=== PATIENT | male | born 1980 | race Caucasian/White ===

== ENCOUNTER 2018-03-09 18:05 | Observation (INO) | payer BC ==
[2018-03-09] MEDS ORDERED: Sodium Chloride 0.9% 10 ML Syringe FLUSH PRN (19:18)
[2018-03-09] MEDS ORDERED: Sodium Chloride 0.9% 2.5 ML Syringe FLUSH PRN (19:18)
[2018-03-09] MEDS ORDERED: Sodium Chloride 0.9% 1,000 ML IV ONE (19:23)
--- NOTE | 2018-03-09 19:27 | EDM.PDOC ---
ED HPI GENERAL MEDICAL PROBLEM - General Chief Complaint: Upper Extremity Injury/Pain Stated Complaint: ALGERIC REATION Time Seen by Provider: 03/09/18 19:11 - History of Present Illness INITIAL COMMENTS - FREE TEXT/NARRATIVE: HISTORY AND PHYSICAL: History of present illness: Patient is a 37-year-old male history chronic back pain 3 months status post implantable stimulator for pain management of his lower back who presents with a concern of 4 areas of erythema involving his right left extremity abdomen and right leg the left extremity has a area of swelling and fullness to his left forearm with a ascending lymphangitis there is a similar area without any swelling or lymphangitic spread of his right arm there is a small lesion on his abdomen and an area of erythema without swelling on his right leg all of these are pruritic. He has had some nausea he denies fever chills chest pain cough or other concern Review of systems: As per history of present illness and below otherwise all systems reviewed and negative. Past medical history: As per history of present illness and as reviewed below otherwise noncontributory. Surgical history: As per history of present illness and as reviewed below otherwise noncontributory. Social history: No reported history of drug or alcohol abuse. Family history: As per history of present illness and as reviewed below otherwise noncontributory. Physical exam: HEENT: Atraumatic, normocephalic, pupils reactive, negative for conjunctival pallor or scleral icterus, mucous membranes moist, throat clear, neck supple, nontender, trachea midline. Lungs: Clear to auscultation, breath sounds equal bilaterally, chest nontender. Heart: S1S2, regular, negative for clicks, rubs, or JVD. Abdomen: Soft, nondistended, nontender. Negative for masses or hepatosplenomegaly. Negative for costovertebral tenderness. Pelvis: Stable nontender. Genitourinary: Deferred. Rectal: Deferred. Extremities: Patient has an area of swelling edema is approximately 5 x 4 cm to his left forearm with a ascending lymphangitis noted is right bicep region has an area of erythema with no significant swelling and no lymphangitic spread is a similar but smaller area of his right leg and a small macular area on his abdomen. Neuro: Awake, alert, oriented. Cranial nerves II through XII unremarkable. Cerebellum unremarkable. Motor and sensory unremarkable throughout. Exam nonfocal. Diagnostics: CBC CMP PT/INR blood culture 2 lactic acid UA chest x-ray CT with contrast left forearm Therapeutics: Saline 1 L bolus vancomycin 1 g IV Impression: #1 cellulitis with ascending lymphangitis left upper extremity Definitive disposition and diagnosis as appropriate pending reevaluation and review of above. Left Upper Arm Pain Score (Numeric/FACES): 7 - Related Data Allergies Allergy/AdvReac Type Severity Reaction Status Date / Time bee pollen Allergy Other Verified 03/09/18 18:31 Home Meds: Home Meds Phenytoin Sodium Extended [Dilantin] 400 mg PO BEDTIME 03/09/18 [History] Past Medical History Neurological History: Reports: Seizure - Infectious Disease History Infectious Disease History: Reports: None Social & Family History - Family History Family Medical History: Noncontributory - Tobacco Use Smoking Status *Q: Current Every Day Smoker Years of Tobacco use: 20 Packs/Tins Daily: 1 - Caffeine Use Caffeine Use: Reports: Coffee - Recreational Drug Use Recreational Drug Use: No Review of Systems - Review of Systems Review Of Systems: ROS reveals no pertinent complaints other than HPI. ED EXAM, GENERAL - Physical Exam Exam: See Below (See dictation) Course - Vital Signs Last Recorded V/S: Last Vital Signs Temp 36.8 C 03/09/18 18:32 Pulse 106 H 03/09/18 18:32 Resp 18 03/09/18 18:32 BP 170/83 H 03/09/18 18:32 Pulse Ox 97 03/09/18 18:32 - Orders/Labs/Meds Orders: Active Orders 24 hr Category Date Time Status Chest 1V Frontal [CR] Stat Exams 03/09/18 19:19 Taken Forearm w Cont Lt [CT] Stat Exams 03/09/18 19:18 Taken CULTURE BLOOD [BC] Stat Lab 03/09/18 19:29 Received CULTURE BLOOD [BC] Stat Lab 03/09/18 19:40 Received UA W/MICROSCOPIC [URIN] Stat Lab 03/09/18 19:17 Ordered Sodium Chloride 0.9% [Saline Flush] Med 03/09/18 19:18 Active 10 ml FLUSH ASDIRECTED PRN Sodium Chloride 0.9% [Saline Flush] Med 03/09/18 19:18 Active 2.5 ml FLUSH ASDIRECTED PRN Blood Culture x2 Reflex Set [OM.PC] Stat Oth 03/09/18 19:17 Ordered Saline Lock Insert [OM.PC] Stat Oth 03/09/18 19:16 Ordered Medication Orders Sodium Chloride (Saline Flush) 10 ml FLUSH ASDIRECTED PRN PRN Reason: Keep Vein Open Sodium Chloride (Saline Flush) 2.5 ml FLUSH ASDIRECTED PRN PRN Reason: Keep Vein Open Labs: Laboratory Tests 03/09/18 03/09/18 03/09/18 Range/Units 19:29 19:29 19:29 WBC 17.30 H (4.0-11.0) K/uL RBC 4.97 (4.50-5.90) M/uL Hgb 15.6 (13.0-17.0) g/dL Hct 44.6 (38.0-50.0) % MCV 89.7 (80.0-98.0) fL MCH 31.4 (27.0-32.0) pg MCHC 35.0 (31.0-37.0) g/dL RDW Std Deviation 42.7 (28.0-62.0) fl RDW Coeff of Kaitlin 13 (11.0-15.0) % Plt Count 270 (150-400) K/uL MPV 11.10 (7.40-12.00) fL Neut % (Auto) 70.5 (48.0-80.0) % Lymph % (Auto) 19.0 (16.0-40.0) % [place] % (Auto) 5.4 (0.0-15.0) % Eos % (Auto) 5.0 (0.0-7.0) % Baso % (Auto) 0.1 (0.0-1.5) % Neut # (Auto) 12.2 H (1.4-5.7) K/uL Lymph # (Auto) 3.3 H (0.6-2.4) K/uL [place] # (Auto) 0.9 H (0.0-0.8) K/uL Eos # (Auto) 0.9 H (0.0-0.7) K/uL Baso # (Auto) 0.0 (0.0-0.1) K/uL Nucleated RBC % 0.0 /100WBC Nucleated RBCs # 0 K/uL INR 1.02 Lactate (0.20-2.00) mmol/L Sodium 139 (136-148) mmol/L Potassium 3.8 (3.5-5.1) mmol/L Chloride 101 (98-107) mmol/L Carbon Dioxide 26.7 (21.0-32.0) mmol/L BUN 7 (7.0-18.0) mg/dL Creatinine 0.8 (0.8-1.3) mg/dL Est Cr Clr Drug Dosing 141.49 mL/min Estimated GFR (MDRD) > 60.0 ml/min Glucose 92 (74-106) mg/dL Calcium 8.9 (8.5-10.1) mg/dL Total Bilirubin 0.5 (0.2-1.0) mg/dL AST 14 L (15-37) IU/L ALT 31 (14-63) IU/L Alkaline Phosphatase 152 H (46-116) U/L Total Protein 7.1 (6.4-8.2) g/dL Albumin 4.1 (3.4-5.0) g/dL Globulin 3.0 (2.0-3.5) g/dL Albumin/Globulin Ratio 1.4 (1.3-2.8) 03/09/18 Range/Units 19:29 WBC (4.0-11.0) K/uL RBC (4.50-5.90) M/uL Hgb (13.0-17.0) g/dL Hct (38.0-50.0) % MCV (80.0-98.0) fL MCH (27.0-32.0) pg MCHC (31.0-37.0) g/dL RDW Std Deviation (28.0-62.0) fl RDW Coeff of Kaitlin (11.0-15.0) % Plt Count (150-400) K/uL MPV (7.40-12.00) fL Neut % (Auto) (48.0-80.0) % Lymph % (Auto) (16.0-40.0) % [place] % (Auto) (0.0-15.0) % Eos % (Auto) (0.0-7.0) % Baso % (Auto) (0.0-1.5) % Neut # (Auto) (1.4-5.7) K/uL Lymph # (Auto) (0.6-2.4) K/uL [place] # (Auto) (0.0-0.8) K/uL Eos # (Auto) (0.0-0.7) K/uL Baso # (Auto) (0.0-0.1) K/uL Nucleated RBC % /100WBC Nucleated RBCs # K/uL INR Lactate 1.2 (0.20-2.00) mmol/L Sodium (136-148) mmol/L Potassium (3.5-5.1) mmol/L Chloride (98-107) mmol/L Carbon Dioxide (21.0-32.0) mmol/L BUN (7.0-18.0) mg/dL Creatinine (0.8-1.3) mg/dL Est Cr Clr Drug Dosing mL/min Estimated GFR (MDRD) ml/min Glucose (74-106) mg/dL Calcium (8.5-10.1) mg/dL Total Bilirubin (0.2-1.0) mg/dL AST (15-37) IU/L ALT (14-63) IU/L Alkaline Phosphatase (46-116) U/L Total Protein (6.4-8.2) g/dL Albumin (3.4-5.0) g/dL Globulin (2.0-3.5) g/dL Albumin/Globulin Ratio (1.3-2.8) Meds: Medications Generic Name Dose Route Start Last Admin Trade Name Freq PRN Reason Stop Dose Admin Sodium Chloride 10 ml 03/09/18 19:18 Saline Flush FLUSH ASDIRECTED PRN Keep Vein Open Sodium Chloride 2.5 ml 03/09/18 19:18 Saline Flush FLUSH ASDIRECTED PRN Keep Vein Open Discontinued Medications Generic Name Dose Route Start Last Admin Trade Name Freq PRN Reason Stop Dose Admin Vancomycin HCl 1 gm/ Sodium 250 mls @ 250 mls/hr 03/09/18 19:19 03/09/18 19: 48 Chloride IV 03/09/18 20:18 250 mls/hr ONETIME ONE Administration Sodium Chloride 1,000 mls @ 999 mls/hr 03/09/18 19:23 03/09/18 19:48 Normal Saline IV 03/09/18 20:23 999 mls/hr STAT ONE Administration Iopamidol 100 ml 03/09/18 20:40 03/09/18 20:40 Isovue Multipack-370 (76%) IVPUSH 03/09/18 20:41 100 ml ONETIME ONE Administration Departure - Departure Time of Disposition: 21:11 Disposition: Refer to Observation Condition: Good Clinical Impression: Cellulitis - Discharge Information Referrals: PCP,None [Primary Care Provider] - Forms: ED Department Discharge - My Orders Last 24 Hours: My Active Orders 03/09/18 19:16 Saline Lock Insert [OM.PC] Stat 03/09/18 19:17 UA W/MICROSCOPIC [URIN] Stat Blood Culture x2 Reflex Set [OM.PC] Stat 03/09/18 19:18 Forearm w Cont Lt [CT] Stat Sodium Chloride 0.9% [Saline Flush] 10 ml FLUSH ASDIRECTED PRN Sodium Chloride 0.9% [Saline Flush] 2.5 ml FLUSH ASDIRECTED PRN 03/09/18 19:19 Chest 1V Frontal [CR] Stat 03/09/18 19:29 CULTURE BLOOD [BC] Stat 03/09/18 19:40 CULTURE BLOOD [BC] Stat - Assessment/Plan Last 24 Hours: My Active Orders 03/09/18 19:16 Saline Lock Insert [OM.PC] Stat 03/09/18 19:17 UA W/MICROSCOPIC [URIN] Stat Blood Culture x2 Reflex Set [OM.PC] Stat 03/09/18 19:18 Forearm w Cont Lt [CT] Stat Sodium Chloride 0.9% [Saline Flush] 10 ml FLUSH ASDIRECTED PRN Sodium Chloride 0.9% [Saline Flush] 2.5 ml FLUSH ASDIRECTED PRN 03/09/18 19:19 Chest 1V Frontal [CR] Stat 03/09/18 19:29 CULTURE BLOOD [BC] Stat 03/09/18 19:40 CULTURE BLOOD [BC] Stat
[2018-03-09 20:01] LABS: CHLORIDE,CL 101 mmol/L (98-107); SODIUM,NA 139 mmol/L (136-148)
[2018-03-09] MEDS ORDERED: Iopamidol 755 MG/ML 200 ML Multipack Bottle IVPUSH ONE (20:40)
--- NOTE | 2018-03-09 23:51 | PCM.HP ---
H&P History of Present Illness - General Date of Service: 03/09/18 Admit Problem/Dx: Admission Diagnosis/Problem Admission Diagnosis/Problem Cellulitis - History of Present Illness Initial Comments - Free Text/Narative: 37 yo male who presents with one day history of rash. The rash started on his abdomen it was indurated and red and about the size of a golf ball. He also had one on the right medial lower leg mid way down his calf and medial knee. He also has erythema and edema of his biceps bilaterally with streaking of his right arm. He denies any fevers. Left Upper Arm Pain Score (Numeric/FACES): 7 - Related Data Allergies/Adverse Reactions: Allergies Allergy/AdvReac Type Severity Reaction Status Date / Time bee pollen Allergy Other Verified 03/09/18 18:31 Home Medications: Home Meds Cetirizine [ZyrTEC] 10 mg PO DAILY 03/09/18 [History] Phenytoin Sodium Extended [Dilantin] 400 mg PO BEDTIME 03/09/18 [History] Clindamycin HCl 300 mg PO Q6HR #20 capsule 03/11/18 [Rx] Past Medical History HEENT History: Reports: None Cardiovascular History: Reports: None Respiratory History: Reports: Asthma, Bronchitis, Recurrent Gastrointestinal History: Reports: None Genitourinary History: Reports: None Musculoskeletal History: Reports: Other (See Below) Other Musculoskeletal History: chronic pain on 4 wxtremities Neurological History: Reports: Seizure Psychiatric History: Reports: None Endocrine/Metabolic History: Reports: None Hematologic History: Reports: None Immunologic History: Reports: None Oncologic (Cancer) History: Reports: None Dermatologic History: Reports: None - Infectious Disease History Infectious Disease History: Reports: Chicken Pox - Past Surgical History Cardiovascular Surgical History: Reports: None Respiratory Surgical History: Reports: None GI Surgical History: Reports: None Male Surgical History: Reports: None Endocrine Surgical History: Reports: None Neurological Surgical History: Reports: Other (See Below) Other Neurological Surgeries/Procedures: spinal cord stilulation Musculoskeletal Surgical History: Reports: Other (See Below) Other Musculoskeletal Surgeries/Procedures:: left knee surgery, spinal cord stimulator Oncologic Surgical History: Reports: None Social & Family History - Family History Family Medical History: Noncontributory - Tobacco Use Smoking Status *Q: Current Every Day Smoker Years of Tobacco use: 28 Packs/Tins Daily: 1 Second Hand Smoke Exposure: No - Caffeine Use Caffeine Use: Reports: Coffee - Recreational Drug Use Recreational Drug Use: No H&P Review of Systems - Review of Systems: Review Of Systems: ROS reveals no pertinent complaints other than HPI. Exam - Exam Exam: See Below - Vital Signs Vital Signs: Last Vital Signs Temp 36.8 C 03/09/18 18:32 Pulse 106 H 03/09/18 18:32 Resp 18 03/09/18 18:32 BP 170/83 H 03/09/18 18:32 Pulse Ox 97 03/09/18 18:32 Weight: 88.949 kg - Exam General: Alert, Oriented Neck: Supple Lungs: Clear to Auscultation, Normal Respiratory Effort Cardiovascular: Regular Rate, Regular Rhythm GI/Abdominal Exam: Normal Bowel Sounds, Soft, Non-Tender, No Organomegaly Extremities: Normal Range of Motion, Non-Tender Skin: Warm, Dry, Intact - Patient Data Lab Results Last 24 hrs: Laboratory Results - last 24 hr 03/09/18 03/09/18 03/09/18 Range/Units 19:29 19:29 19:29 WBC 17.30 H (4.0-11.0) K/uL RBC 4.97 (4.50-5.90) M/uL Hgb 15.6 (13.0-17.0) g/dL Hct 44.6 (38.0-50.0) % MCV 89.7 (80.0-98.0) fL MCH 31.4 (27.0-32.0) pg MCHC 35.0 (31.0-37.0) g/dL RDW Std Deviation 42.7 (28.0-62.0) fl RDW Coeff of Kaitlin 13 (11.0-15.0) % Plt Count 270 (150-400) K/uL MPV 11.10 (7.40-12.00) fL Neut % (Auto) 70.5 (48.0-80.0) % Lymph % (Auto) 19.0 (16.0-40.0) % [place] % (Auto) 5.4 (0.0-15.0) % Eos % (Auto) 5.0 (0.0-7.0) % Baso % (Auto) 0.1 (0.0-1.5) % Neut # (Auto) 12.2 H (1.4-5.7) K/uL Lymph # (Auto) 3.3 H (0.6-2.4) K/uL [place] # (Auto) 0.9 H (0.0-0.8) K/uL Eos # (Auto) 0.9 H (0.0-0.7) K/uL Baso # (Auto) 0.0 (0.0-0.1) K/uL Nucleated RBC % 0.0 /100WBC Nucleated RBCs # 0 K/uL INR 1.02 Lactate (0.20-2.00) mmol/L Sodium 139 (136-148) mmol/L Potassium 3.8 (3.5-5.1) mmol/L Chloride 101 (98-107) mmol/L Carbon Dioxide 26.7 (21.0-32.0) mmol/L BUN 7 (7.0-18.0) mg/dL Creatinine 0.8 (0.8-1.3) mg/dL Est Cr Clr Drug Dosing 141.49 mL/min Estimated GFR (MDRD) > 60.0 ml/min Glucose 92 (74-106) mg/dL Calcium 8.9 (8.5-10.1) mg/dL Total Bilirubin 0.5 (0.2-1.0) mg/dL AST 14 L (15-37) IU/L ALT 31 (14-63) IU/L Alkaline Phosphatase 152 H (46-116) U/L Total Protein 7.1 (6.4-8.2) g/dL Albumin 4.1 (3.4-5.0) g/dL Globulin 3.0 (2.0-3.5) g/dL Albumin/Globulin Ratio 1.4 (1.3-2.8) Urine Color Urine Appearance Urine pH (5.0-8.0) Ur Specific [place] (1.001-1.035) Urine Protein (NEGATIVE) mg/dL Urine Glucose (UA) (NEGATIVE) mg/dL Urine Ketones (NEGATIVE) mg/dL Urine Occult Blood (NEGATIVE) Urine Nitrite (NEGATIVE) Urine Bilirubin (NEGATIVE) Urine Urobilinogen (<2.0) EU/dL Ur Leukocyte Esterase (NEGATIVE) Urine RBC (0-2/HPF) Urine WBC (0-5/HPF) Ur Epithelial Cells (NONE-FEW) Urine Bacteria (NEGATIVE) 07/12/18 07/12/18 Range/Units 19:29 21:25 WBC (4.0-11.0) K/uL RBC (4.50-5.90) M/uL Hgb (13.0-17.0) g/dL Hct (38.0-50.0) % MCV (80.0-98.0) fL MCH (27.0-32.0) pg MCHC (31.0-37.0) g/dL RDW Std Deviation (28.0-62.0) fl RDW Coeff of Kaitlin (11.0-15.0) % Plt Count (150-400) K/uL MPV (7.40-12.00) fL Neut % (Auto) (48.0-80.0) % Lymph % (Auto) (16.0-40.0) % [place] % (Auto) (0.0-15.0) % Eos % (Auto) (0.0-7.0) % Baso % (Auto) (0.0-1.5) % Neut # (Auto) (1.4-5.7) K/uL Lymph # (Auto) (0.6-2.4) K/uL [place] # (Auto) (0.0-0.8) K/uL Eos # (Auto) (0.0-0.7) K/uL Baso # (Auto) (0.0-0.1) K/uL Nucleated RBC % /100WBC Nucleated RBCs # K/uL INR Lactate 1.2 (0.20-2.00) mmol/L Sodium (136-148) mmol/L Potassium (3.5-5.1) mmol/L Chloride (98-107) mmol/L Carbon Dioxide (21.0-32.0) mmol/L BUN (7.0-18.0) mg/dL Creatinine (0.8-1.3) mg/dL Est Cr Clr Drug Dosing mL/min Estimated GFR (MDRD) ml/min Glucose (74-106) mg/dL Calcium (8.5-10.1) mg/dL Total Bilirubin (0.2-1.0) mg/dL AST (15-37) IU/L ALT (14-63) IU/L Alkaline Phosphatase (46-116) U/L Total Protein (6.4-8.2) g/dL Albumin (3.4-5.0) g/dL Globulin (2.0-3.5) g/dL Albumin/Globulin Ratio (1.3-2.8) Urine Color YELLOW Urine Appearance CLEAR Urine pH 6.5 (5.0-8.0) Ur Specific [place] <= 1.005 (1.001-1.035) Urine Protein NEGATIVE (NEGATIVE) mg/dL Urine Glucose (UA) NEGATIVE (NEGATIVE) mg/dL Urine Ketones NEGATIVE (NEGATIVE) mg/dL Urine Occult Blood NEGATIVE (NEGATIVE) Urine Nitrite NEGATIVE (NEGATIVE) Urine Bilirubin NEGATIVE (NEGATIVE) Urine Urobilinogen 0.2 (<2.0) EU/dL Ur Leukocyte Esterase NEGATIVE (NEGATIVE) Urine RBC 0-1 (0-2/HPF) Urine WBC 0-1 (0-5/HPF) Ur Epithelial Cells RARE (NONE-FEW) Urine Bacteria RARE (NEGATIVE) Result Diagrams: 03/11/18 06:26 03/11/18 06:26 Problem List Initiated/Reviewed/Updated: Yes Orders Last 24hrs: Active Orders 24 hr Category Date Time Status Patient Status [ADT] Stat ADT 03/09/18 21:17 Active Oxygen Therapy [RC] PRN Care 03/09/18 23:46 Ordered Up ad Genesis [RC] ASDIRECTED Care 03/09/18 23:46 Ordered VTE/DVT Education [RC] PER UNIT ROUTINE Care 03/09/18 23:46 Ordered Vital Signs [RC] Q4H Care 03/09/18 23:46 Ordered Regular Diet [DIET] Diet 03/09/18 Breakfast Ordered Chest 1V Frontal [CR] Stat Exams 03/09/18 19:19 Taken Forearm w Cont Lt [CT] Stat Exams 03/09/18 19:18 Taken BASIC METABOLIC PANEL,BMP [CHEM] AM Lab 03/10/18 05:11 Ordered CBC WITH AUTO DIFF [HEME] AM Lab 03/10/18 05:11 Ordered CULTURE BLOOD [BC] Stat Lab 03/09/18 19:29 Received CULTURE BLOOD [BC] Stat Lab 03/09/18 19:40 Received UA W/MICROSCOPIC [URIN] Stat Lab 03/09/18 21:25 Ordered Acetaminophen [Tylenol] Med 03/09/18 23:46 Ordered 650 mg PO Q4H PRN Heparin Sodium Med 03/09/18 23:45 Ordered 5,000 units SUBCUT Q8H Phenytoin Med 03/09/18 21:00 Ordered 400 mg PO BEDTIME Sodium Chloride 0.9% [Saline Flush] Med 03/09/18 19:18 Active 10 ml FLUSH ASDIRECTED PRN Sodium Chloride 0.9% [Saline Flush] Med 03/09/18 19:18 Active 2.5 ml FLUSH ASDIRECTED PRN Vancomycin Pharmacy to Dose [Pharmacy to Dose - Med 03/09/18 23:45 Ordered Vancomycin] 1 dose .XX ASDIRECTED Blood Culture x2 Reflex Set [OM.PC] Stat Oth 03/09/18 19:17 Ordered Saline Lock Insert [OM.PC] Stat Oth 03/09/18 19:16 Ordered Resuscitation Status Routine Resus Stat 03/09/18 23:46 Ordered Medication Orders Sodium Chloride (Saline Flush) 10 ml FLUSH ASDIRECTED PRN PRN Reason: Keep Vein Open Sodium Chloride (Saline Flush) 2.5 ml FLUSH ASDIRECTED PRN PRN Reason: Keep Vein Open Assessment/Plan Comment:: 37 yo male admitted with cellulitis. We will treat with Vancomycin.
[2018-03-10] MEDS: Heparin Sodium 5,000 Units/ML Vial SUBCUT SCH ×4 (00:18→23:02)
[2018-03-10] MEDS: Phenytoin 100 MG Cap.ER PO SCH ×2 (00:18→20:20)
[2018-03-10] MEDS: Acetaminophen 325 MG Tab PO PRN ×4 (05:39→19:04)
[2018-03-10 06:26] LABS: CHLORIDE,CL 104 mmol/L (98-107); SODIUM,NA 139 mmol/L (136-148)
[2018-03-10] MEDS: Nicotine 21 MG/24 Hr Patch TRDERM SCH (10:25)
[2018-03-10] MEDS ORDERED: Potassium Chloride 20 MEQ Tab.ER PO ONE (11:49)
--- NOTE | 2018-03-10 11:51 | PCM.PN ---
- General Info Date of Service: 03/10/18 - Review of Systems Systems Review Comment:: erythema improving - Patient Data Vitals - Most Recent: Last Vital Signs Temp 36.8 C 03/10/18 07:57 Pulse 76 03/10/18 04:00 Resp 14 03/10/18 07:57 BP 133/81 03/10/18 07:57 Pulse Ox 94 L 03/10/18 07:57 Weight - Most Recent: 88.949 kg I&O - Last 24 Hours: Intake & Output 03/09/18 03/10/18 03/10/18 22:59 06:59 14:59 Intake Total 450 Output Total 550 Balance -100 Lab Results Last 24 Hours: Laboratory Results - last 24 hr 03/09/18 03/09/18 03/09/18 Range/Units 19:29 19:29 19:29 WBC 17.30 H (4.0-11.0) K/uL RBC 4.97 (4.50-5.90) M/uL Hgb 15.6 (13.0-17.0) g/dL Hct 44.6 (38.0-50.0) % MCV 89.7 (80.0-98.0) fL MCH 31.4 (27.0-32.0) pg MCHC 35.0 (31.0-37.0) g/dL RDW Std Deviation 42.7 (28.0-62.0) fl RDW Coeff of Kaitlin 13 (11.0-15.0) % Plt Count 270 (150-400) K/uL MPV 11.10 (7.40-12.00) fL Neut % (Auto) 70.5 (48.0-80.0) % Lymph % (Auto) 19.0 (16.0-40.0) % Long % (Auto) 5.4 (0.0-15.0) % Eos % (Auto) 5.0 (0.0-7.0) % Baso % (Auto) 0.1 (0.0-1.5) % Neut # (Auto) 12.2 H (1.4-5.7) K/uL Lymph # (Auto) 3.3 H (0.6-2.4) K/uL Long # (Auto) 0.9 H (0.0-0.8) K/uL Eos # (Auto) 0.9 H (0.0-0.7) K/uL Baso # (Auto) 0.0 (0.0-0.1) K/uL Nucleated RBC % 0.0 /100WBC Nucleated RBCs # 0 K/uL INR 1.02 Lactate (0.20-2.00) mmol/L Sodium 139 (136-148) mmol/L Potassium 3.8 (3.5-5.1) mmol/L Chloride 101 (98-107) mmol/L Carbon Dioxide 26.7 (21.0-32.0) mmol/L BUN 7 (7.0-18.0) mg/dL Creatinine 0.8 (0.8-1.3) mg/dL Est Cr Clr Drug Dosing 141.49 mL/min Estimated GFR (MDRD) > 60.0 ml/min Glucose 92 (74-106) mg/dL Calcium 8.9 (8.5-10.1) mg/dL Total Bilirubin 0.5 (0.2-1.0) mg/dL AST 14 L (15-37) IU/L ALT 31 (14-63) IU/L Alkaline Phosphatase 152 H (46-116) U/L Total Protein 7.1 (6.4-8.2) g/dL Albumin 4.1 (3.4-5.0) g/dL Globulin 3.0 (2.0-3.5) g/dL Albumin/Globulin Ratio 1.4 (1.3-2.8) Urine Color Urine Appearance Urine pH (5.0-8.0) Ur Specific [place] (1.001-1.035) Urine Protein (NEGATIVE) mg/dL Urine Glucose (UA) (NEGATIVE) mg/dL Urine Ketones (NEGATIVE) mg/dL Urine Occult Blood (NEGATIVE) Urine Nitrite (NEGATIVE) Urine Bilirubin (NEGATIVE) Urine Urobilinogen (<2.0) EU/dL Ur Leukocyte Esterase (NEGATIVE) Urine RBC (0-2/HPF) Urine WBC (0-5/HPF) Ur Epithelial Cells (NONE-FEW) Urine Bacteria (NEGATIVE) 03/09/18 03/09/18 03/10/18 Range/Units 19:29 21:25 06:03 WBC 12.85 H (4.0-11.0) K/uL RBC 4.44 L (4.50-5.90) M/uL Hgb 13.9 (13.0-17.0) g/dL Hct 40.1 (38.0-50.0) % MCV 90.3 (80.0-98.0) fL MCH 31.3 (27.0-32.0) pg MCHC 34.7 (31.0-37.0) g/dL RDW Std Deviation 42.7 (28.0-62.0) fl RDW Coeff of Kaitlin 13 (11.0-15.0) % Plt Count 238 (150-400) K/uL MPV 11.30 (7.40-12.00) fL Neut % (Auto) 59.2 (48.0-80.0) % Lymph % (Auto) 27.7 (16.0-40.0) % Long % (Auto) 6.8 (0.0-15.0) % Eos % (Auto) 6.2 (0.0-7.0) % Baso % (Auto) 0.1 (0.0-1.5) % Neut # (Auto) 7.6 H (1.4-5.7) K/uL Lymph # (Auto) 3.6 H (0.6-2.4) K/uL Long # (Auto) 0.9 H (0.0-0.8) K/uL Eos # (Auto) 0.8 H (0.0-0.7) K/uL Baso # (Auto) 0.0 (0.0-0.1) K/uL Nucleated RBC % 0.0 /100WBC Nucleated RBCs # 0 K/uL INR Lactate 1.2 (0.20-2.00) mmol/L Sodium (136-148) mmol/L Potassium (3.5-5.1) mmol/L Chloride (98-107) mmol/L Carbon Dioxide (21.0-32.0) mmol/L BUN (7.0-18.0) mg/dL Creatinine (0.8-1.3) mg/dL Est Cr Clr Drug Dosing mL/min Estimated GFR (MDRD) ml/min Glucose (74-106) mg/dL Calcium (8.5-10.1) mg/dL Total Bilirubin (0.2-1.0) mg/dL AST (15-37) IU/L ALT (14-63) IU/L Alkaline Phosphatase (46-116) U/L Total Protein (6.4-8.2) g/dL Albumin (3.4-5.0) g/dL Globulin (2.0-3.5) g/dL Albumin/Globulin Ratio (1.3-2.8) Urine Color YELLOW Urine Appearance CLEAR Urine pH 6.5 (5.0-8.0) Ur Specific [place] <= 1.005 (1.001-1.035) Urine Protein NEGATIVE (NEGATIVE) mg/dL Urine Glucose (UA) NEGATIVE (NEGATIVE) mg/dL Urine Ketones NEGATIVE (NEGATIVE) mg/dL Urine Occult Blood NEGATIVE (NEGATIVE) Urine Nitrite NEGATIVE (NEGATIVE) Urine Bilirubin NEGATIVE (NEGATIVE) Urine Urobilinogen 0.2 (<2.0) EU/dL Ur Leukocyte Esterase NEGATIVE (NEGATIVE) Urine RBC 0-1 (0-2/HPF) Urine WBC 0-1 (0-5/HPF) Ur Epithelial Cells RARE (NONE-FEW) Urine Bacteria RARE (NEGATIVE) 03/10/18 Range/Units 06:03 WBC (4.0-11.0) K/uL RBC (4.50-5.90) M/uL Hgb (13.0-17.0) g/dL Hct (38.0-50.0) % MCV (80.0-98.0) fL MCH (27.0-32.0) pg MCHC (31.0-37.0) g/dL RDW Std Deviation (28.0-62.0) fl RDW Coeff of Kaitlin (11.0-15.0) % Plt Count (150-400) K/uL MPV (7.40-12.00) fL Neut % (Auto) (48.0-80.0) % Lymph % (Auto) (16.0-40.0) % Long % (Auto) (0.0-15.0) % Eos % (Auto) (0.0-7.0) % Baso % (Auto) (0.0-1.5) % Neut # (Auto) (1.4-5.7) K/uL Lymph # (Auto) (0.6-2.4) K/uL Long # (Auto) (0.0-0.8) K/uL Eos # (Auto) (0.0-0.7) K/uL Baso # (Auto) (0.0-0.1) K/uL Nucleated RBC % /100WBC Nucleated RBCs # K/uL INR Lactate (0.20-2.00) mmol/L Sodium 139 (136-148) mmol/L Potassium 3.4 L (3.5-5.1) mmol/L Chloride 104 (98-107) mmol/L Carbon Dioxide 27.6 (21.0-32.0) mmol/L BUN 6 L (7.0-18.0) mg/dL Creatinine 0.7 L (0.8-1.3) mg/dL Est Cr Clr Drug Dosing 160.93 mL/min Estimated GFR (MDRD) > 60.0 ml/min Glucose 121 H (74-106) mg/dL Calcium 8.3 L (8.5-10.1) mg/dL Total Bilirubin (0.2-1.0) mg/dL AST (15-37) IU/L ALT (14-63) IU/L Alkaline Phosphatase (46-116) U/L Total Protein (6.4-8.2) g/dL Albumin (3.4-5.0) g/dL Globulin (2.0-3.5) g/dL Albumin/Globulin Ratio (1.3-2.8) Urine Color Urine Appearance Urine pH (5.0-8.0) Ur Specific [place] (1.001-1.035) Urine Protein (NEGATIVE) mg/dL Urine Glucose (UA) (NEGATIVE) mg/dL Urine Ketones (NEGATIVE) mg/dL Urine Occult Blood (NEGATIVE) Urine Nitrite (NEGATIVE) Urine Bilirubin (NEGATIVE) Urine Urobilinogen (<2.0) EU/dL Ur Leukocyte Esterase (NEGATIVE) Urine RBC (0-2/HPF) Urine WBC (0-5/HPF) Ur Epithelial Cells (NONE-FEW) Urine Bacteria (NEGATIVE) Med Orders - Current: Current Medications Acetaminophen (Tylenol) 650 mg PO Q4H PRN PRN Reason: Pain (Mild 1-3)/fever Last Admin: 03/10/18 10:25 Dose: 650 mg Heparin Sodium (Porcine) (Heparin Sodium) 5,000 units SUBCUT Q8H [facility] Last Admin: 03/10/18 06:50 Dose: 5,000 units Vancomycin HCl 1,250 mg/ (Sodium Chloride) 250 mls @ 166.667 mls/hr IV Q8H [facility] Nicotine (Habitrol) 21 mg TRDERM Q24H [facility] Last Admin: 03/10/18 10:25 Dose: 21 mg Phenytoin Sodium (Phenytoin) 400 mg PO BEDTIME [facility] Last Admin: 03/10/18 00:18 Dose: 400 mg Sodium Chloride (Saline Flush) 10 ml FLUSH ASDIRECTED PRN PRN Reason: Keep Vein Open Sodium Chloride (Saline Flush) 2.5 ml FLUSH ASDIRECTED PRN PRN Reason: Keep Vein Open Vancomycin HCl (Pharmacy To Dose - Vancomycin) 1 dose .XX ASDIRECTED [facility] Discontinued Medications Vancomycin HCl 1 gm/ Sodium (Chloride) 250 mls @ 250 mls/hr IV ONETIME ONE Stop: 03/09/18 20:18 Last Admin: 03/09/18 19:48 Dose: 250 mls/hr Sodium Chloride (Normal Saline) 1,000 mls @ 999 mls/hr IV STAT ONE Stop: 03/09/18 20:23 Last Admin: 03/09/18 19:48 Dose: 999 mls/hr Vancomycin HCl 1,250 mg/ (Dextrose/Water) 250 mls @ 166.667 mls/hr IV Q8H [facility] Last Admin: 03/10/18 03:34 Dose: 166.667 mls/hr Iopamidol (Isovue Multipack-370 (76%)) 100 ml IVPUSH ONETIME ONE Stop: 03/09/18 20:41 Last Admin: 03/09/18 20:40 Dose: 100 ml - Exam General: Alert, Oriented HEENT: Mucous Membr. Moist/[place] Neck: Supple Cardiovascular: Regular Rate, Regular Rhythm GI/Abdominal Exam: Normal Bowel Sounds, Soft, Non-Tender Extremities: No Pedal Edema Skin: Rash (erythema and streaking of right bicipes improving, no area of fluctuance or drainage) - Problem List Review Problem List Initiated/Reviewed/Updated: Yes - My Orders Last 24 Hours: My Active Orders 03/09/18 21:00 Phenytoin 400 mg PO BEDTIME 03/09/18 23:45 Heparin Sodium 5,000 units SUBCUT Q8H Vancomycin Pharmacy to Dose [Pharmacy to Dose - Vancomycin] 1 dose .XX ASDIRECTED 03/09/18 23:46 Oxygen Therapy [RC] PRN Up ad Genesis [RC] ASDIRECTED VTE/DVT Education [RC] PER UNIT ROUTINE Vital Signs [RC] Q4H Acetaminophen [Tylenol] 650 mg PO Q4H PRN Resuscitation Status Routine 03/10/18 11:30 Vancomycin 1,250 mg Sodium Chloride 0.9% [Normal Saline] 250 ml IV Q8H 03/10/18 11:49 Potassium Chloride [Klor-Con M20] 40 meq PO ONETIME ONE - Plan Plan:: 37 yo male admitted with cellulitis. Appears to be improving. We will continue Vancomycin. Anticipated discharge home tomorrow on PO antibiotics.
--- NOTE | 2018-03-10 13:39 | CT ---
EXAM DATE: 03/09/18 PATIENT'S AGE: 37 Patient: JU KHALIL Facility: [place], [place] Site . Site : 1980 Study: CT Extremity Left FOREARM [id number]/12/[id number] 8:42:26 PM Ordering Physician: Jimbo Way Final Report: Indication: Redness and pain. Technique: CT left forearm with 100 cc Isovue 370 IV contrast. Comparison: None. Findings: Bones: Alignment is normal. No fractures or bone lesions. No sign of osteomyelitis. Joints: Unremarkable. Soft tissues: There is subcutaneous inflammation/edema and fluid lining the muscular fascia anteriorly in the proximal to mid forearm. No fluid collection to suggest abscess. Impression: Acute cellulitis is suspected in the anterior proximal to mid left forearm. No sign of abscess or deeper infection. Please note that all CT scans at this facility use dose modulation, iterative reconstruction, and/or weight-based dosing when appropriate to reduce radiation dose to as low as reasonably achievable. Dictated by Carl Ross MD @ Mar 09 2018 8:56PM (Electronic Signature) Report Signed by Proxy. [facility]
--- NOTE | 2018-03-10 13:40 | CR ---
EXAM DATE: 03/09/18 PATIENT'S AGE: 37 Patient: JU KHALIL Facility: [place], [place] Site . Site : 1980 Study: XRay Chest [id number]/12/2018 8:48:04 PM Ordering Physician: Jimbo Way Final Report: INDICATION: Shortness of breath. History of asthma. Abscess to left forearm TECHNIQUE: Chest radiograph 1 view COMPARISON: None FINDINGS: Mediastinum: The mediastinum is normal in appearance. The heart silhouette is normal in size and morphology. Neurostimulator leads are seen over the inferior thoracic and inferior cervical spine. Lungs: Both lungs are unremarkable in appearance. No sign of pleural effusion seen. No pneumothorax is identified. Bones and soft tissue: See above. IMPRESSION: 1. No acute cardiopulmonary disease is seen. Dictated by Marlo Mariee MD @ 03/09/2018 8:59:38 PM Dictated by: Marlo Mariee MD @ 03/09/2018 21:00:54 (Electronic Signature) Report Signed by Proxy. [facility]
[2018-03-11 06:43] LABS: CHLORIDE,CL 107 mmol/L (98-107); SODIUM,NA 141 mmol/L (136-148)
[2018-03-11] MEDS: Heparin Sodium 5,000 Units/ML Vial SUBCUT SCH (07:00)
--- NOTE | 2018-03-11 08:44 | PCM.DCSUM1 ---
Discharge Summary - Discharge Data Discharge Date: 03/11/18 Discharge Disposition: Home, Self-Care 01 Condition: Good - Patient Summary/Data Hospital Course: 37 yo male who was admitted for cellulitis. He presents with one day history of a patchy rash located on abdomen, right lower leg and bilateral distal biceps. He has some associated edema around the arm rash with streaking up his left arm. He was noted to have a white blood cell coutn of 17,300. He was treated with Vancomycin with improvement in his leukocytosis and rash. He is being discharged home on clindamycin. - Patient Instructions Diet: Usual Diet as Tolerated - Discharge Plan Prescriptions/Med Rec: Clindamycin HCl 300 mg PO Q6HR #20 capsule Home Medications: Home Meds Cetirizine [ZyrTEC] 10 mg PO DAILY 03/09/18 [History] Phenytoin Sodium Extended [Dilantin] 400 mg PO BEDTIME 03/09/18 [History] Clindamycin HCl 300 mg PO Q6HR #20 capsule 03/11/18 [Rx] Referrals: Cali Velásquez MD [Physician] - 03/15/18 9:00 am - Patient Data Vitals - Most Recent: Last Vital Signs Temp 36.2 C 03/11/18 07:20 Pulse 68 03/11/18 07:20 Resp 18 03/11/18 07:20 BP 126/76 03/11/18 07:20 Pulse Ox 94 L 03/11/18 07:20 Weight - Most Recent: 88.949 kg I&O - Last 24 hours: Intake & Output 03/10/18 03/11/18 03/11/18 22:59 06:59 14:59 Intake Total 650 200 Output Total 950 800 Balance -300 -600 Lab Results - Last 24 hrs: Laboratory Results - last 24 hr 03/11/18 03/11/18 03/11/18 Range/Units 02:30 06:26 06:26 WBC 9.93 (4.0-11.0) K/uL RBC 4.53 (4.50-5.90) M/uL Hgb 14.0 (13.0-17.0) g/dL Hct 41.0 (38.0-50.0) % MCV 90.5 (80.0-98.0) fL MCH 30.9 (27.0-32.0) pg MCHC 34.1 (31.0-37.0) g/dL RDW Std Deviation 42.6 (28.0-62.0) fl RDW Coeff of Kaitlin 13 (11.0-15.0) % Plt Count 233 (150-400) K/uL MPV 11.40 (7.40-12.00) fL Neut % (Auto) 51.5 (48.0-80.0) % Lymph % (Auto) 33.2 (16.0-40.0) % Zavala % (Auto) 6.5 (0.0-15.0) % Eos % (Auto) 8.7 H (0.0-7.0) % Baso % (Auto) 0.1 (0.0-1.5) % Neut # (Auto) 5.1 (1.4-5.7) K/uL Lymph # (Auto) 3.3 H (0.6-2.4) K/uL [place]ala # (Auto) 0.7 (0.0-0.8) K/uL Eos # (Auto) 0.9 H (0.0-0.7) K/uL Baso # (Auto) 0.0 (0.0-0.1) K/uL Nucleated RBC % 0.0 /100WBC Nucleated RBCs # 0 K/uL Sodium 141 (136-148) mmol/L Potassium 3.5 (3.5-5.1) mmol/L Chloride 107 (98-107) mmol/L Carbon Dioxide 27.2 (21.0-32.0) mmol/L BUN 5 L (7.0-18.0) mg/dL Creatinine 0.6 L (0.8-1.3) mg/dL Est Cr Clr Drug Dosing 187.75 mL/min Estimated GFR (MDRD) > 60.0 ml/min Glucose 121 H (74-106) mg/dL Calcium 8.5 (8.5-10.1) mg/dL Vancomycin Trough 8.0 (5.0-10.0) ug/mL REGGIE Results - Last 24 hrs: Microbiology 03/09/18 19:40 Aerobic Blood Culture - Preliminary Blood - Venous - Lab Draw NO GROWTH AFTER 1 DAY Anaerobic Blood Culture - Preliminary NO GROWTH AFTER 1 DAY 03/09/18 19:29 Aerobic Blood Culture - Preliminary Blood - Venous NO GROWTH AFTER 1 DAY Anaerobic Blood Culture - Preliminary NO GROWTH AFTER 1 DAY Med Orders - Current: Current Medications Acetaminophen (Tylenol) 650 mg PO Q4H PRN PRN Reason: Pain (Mild 1-3)/fever Last Admin: 03/10/18 19:04 Dose: 650 mg Heparin Sodium (Porcine) (Heparin Sodium) 5,000 units SUBCUT Q8H [facility] Last Admin: 03/11/18 07:00 Dose: 5,000 units Vancomycin HCl 1,250 mg/ (Dextrose/Water) 250 mls @ 166.667 mls/hr IV Q6H [facility] Last Admin: 03/11/18 03:32 Dose: 166.667 mls/hr Nicotine (Habitrol) 21 mg TRDERM Q24H [facility] Last Admin: 03/10/18 10:25 Dose: 21 mg Phenytoin Sodium (Phenytoin) 400 mg PO BEDTIME [facility] Last Admin: 03/10/18 20:20 Dose: 400 mg Sodium Chloride (Saline Flush) 10 ml FLUSH ASDIRECTED PRN PRN Reason: Keep Vein Open Sodium Chloride (Saline Flush) 2.5 ml FLUSH ASDIRECTED PRN PRN Reason: Keep Vein Open Vancomycin HCl (Pharmacy To Dose - Vancomycin) 1 dose .XX ASDIRECTED [facility] Discontinued Medications Vancomycin HCl 1 gm/ Sodium (Chloride) 250 mls @ 250 mls/hr IV ONETIME ONE Stop: 03/09/18 20:18 Last Admin: 03/09/18 19:48 Dose: 250 mls/hr Sodium Chloride (Normal Saline) 1,000 mls @ 999 mls/hr IV STAT ONE Stop: 03/09/18 20:23 Last Admin: 03/09/18 19:48 Dose: 999 mls/hr Vancomycin HCl 1,250 mg/ (Dextrose/Water) 250 mls @ 166.667 mls/hr IV Q8H [facility] Last Admin: 03/10/18 03:34 Dose: 166.667 mls/hr Vancomycin HCl 1,250 mg/ (Sodium Chloride) 250 mls @ 166.667 mls/hr IV Q8H [facility] Last Admin: 03/10/18 19:04 Dose: 166.667 mls/hr Iopamidol (Isovue Multipack-370 (76%)) 100 ml IVPUSH ONETIME ONE Stop: 03/09/18 20:41 Last Admin: 03/09/18 20:40 Dose: 100 ml Potassium Chloride (Klor-Con M20) 40 meq PO ONETIME ONE Stop: 03/10/18 11:50 Last Admin: 03/10/18 12:11 Dose: 40 meq
[2018-03-11] MEDS: Nicotine 21 MG/24 Hr Patch TRDERM SCH (10:12)
== END 2018-03-11 10:30 | disposition home or self-care (01) ==
LOC: MW.ED 18:05 → MW.MS 21:17
PROVIDERS: ADMIT Internal Medicine; ATTEND Internal Medicine
DX: L03.90 Cellulitis, unspecified (principal); R60.9 Edema, unspecified; R21 Rash and other nonspecific skin eruption; D72.829 Elevated white blood cell count, unspecified; J45.909 Unspecified asthma, uncomplicated; F17.200 Nicotine dependence, unspecified, uncomplicated; Z91.030 Bee allergy status
CPT/HCPCS: 36415; 71045; 73201; 80048; 80053; 80202; 81001; 83605; 85025; 85610; 87040; 96361; 96365; 96366; 96372; 96376; 99284; A9270; G0378; J1644; J3370; J7040; J7050; J7060; Q9967

== ENCOUNTER 2018-09-15 17:57 | Emergency (ER) | payer BC ==
[2018-09-15] MEDS ORDERED: methylPREDNISolone Sodium Succinate 125 MG/2 ML SDV IM ONE (18:25)
--- NOTE | 2018-09-15 18:33 | EDM.PDOC ---
ED HPI GENERAL MEDICAL PROBLEM - General Chief Complaint: Allergic Reaction Stated Complaint: allergic reaction Time Seen by Provider: 09/15/18 18:08 Source of Information: Reports: Patient History Limitations: Reports: No Limitations - History of Present Illness INITIAL COMMENTS - FREE TEXT/NARRATIVE: HISTORY AND PHYSICAL: History of present illness: Patient is a 38-year-old male who presents to the emergency room with complaints of blisters to his left hand along with a rash. Patient states 6 months ago he was diagnosed with idiopathic eosinophilia syndrome (IHS). During the first outbreak he had the same presentation which developed into more severe blisters to his upper chest, abdomen and upper forearms. At that time he states he was hospitalized as it was thought he had cellulitis. He did follow- up with the [facility]amer [facility] who then diagnosed him with IHS. He states that the [facility] had placed him on a four-week tapered dose of prednisone. He is here today as he is requesting prednisone to treat the beginning stages of this allergic reaction. Review of systems: As per history of present illness and below otherwise all systems reviewed and negative. Past medical history: As per history of present illness and as reviewed below otherwise noncontributory. Surgical history: As per history of present illness and as reviewed below otherwise noncontributory. Social history: See social history for further information Family history: As per history of present illness and as reviewed below otherwise noncontributory. Physical exam: General: Well-developed and well-nourished 38-year-old male. Alert and oriented. Nontoxic appearing and in no acute distress. HEENT: Atraumatic, normocephalic, pupils equal and reactive bilaterally, negative for conjunctival pallor or scleral icterus, mucous membranes moist, TMs normal bilaterally, throat clear, neck supple, nontender, trachea midline. No drooling or trismus noted. No meningeal signs. No hot potato voice noted. Lungs: Clear to auscultation, breath sounds equal bilaterally, chest nontender. Heart: S1S2, regular rate and rhythm without overt murmur Abdomen: Soft, nondistended, nontender. Negative for masses or hepatosplenomegaly. Negative for costovertebral tenderness. Pelvis: Stable nontender. Genitourinary: Deferred. Rectal: Deferred. Skin: 2 small circular blisters on left upper extremity. One to the left wrist and other on posterior surface of hand. This is associated with mild bumpy erythema surrounding it the area, diffuse. Otherwise skin is intact, warm, dry. No lesions noted. Extremities: Atraumatic, moves all extremities per self without difficulty or deficits, negative for cords or calf pain. Neurovascular unremarkable. Neuro: Awake, alert, oriented. Cranial nerves II through XII unremarkable. Cerebellum unremarkable. Motor and sensory unremarkable throughout. Exam nonfocal. Notes: Patient defers any lab testing at this time. I will give him a shot of Solu- Medrol here in the emergency room. He is adamant about receiving the four-week course of steroid stating that this is what his [facility] requested he use. We discussed in great length signs and symptoms that would prompt him to return to the emergency room. I encouraged him to follow closely with his primary care provider and the [employer] [employer]. He voices understanding and is agreeable to plan of care. Denies any further questions or concerns at this time. Diagnostics: None Therapeutics: Solu-Medrol Prescription: Prednisone Atarax Impression: Idiopathic Hypereosinophil Syndrome Plan: 1. Please keep the blisters clean and dry. 2. Take the medications as prescribed. Please use [id number] Benadryl (H1 Ly) and/or Zantac (H-2 Ly) 3. Please follow-up with your primary team primary care physician and/or [facility] in the next week. Return to the ED as needed and as discussed. Definitive disposition and diagnosis as appropriate pending reevaluation and review of above. Left hand Pain Score (Numeric/FACES): 2 - Related Data Allergies Allergy/AdvReac Type Severity Reaction Status Date / Time bee pollen Allergy Other Verified 09/15/18 18:11 Home Meds: Home Meds Cetirizine [ZyrTEC] 10 mg PO DAILY 03/09/18 [History] Phenytoin Sodium Extended [Dilantin] 400 mg PO BEDTIME 03/09/18 [History] Past Medical History HEENT History: Reports: Impaired Vision Cardiovascular History: Reports: None Respiratory History: Reports: Asthma, Bronchitis, Recurrent Gastrointestinal History: Reports: None Genitourinary History: Reports: None Musculoskeletal History: Reports: Other (See Below) Other Musculoskeletal History: chronic pain on 4 wxtremities Neurological History: Reports: Seizure Psychiatric History: Reports: None Endocrine/Metabolic History: Reports: None Hematologic History: Reports: None Other Hematologic History: Hyper-eosiniphils Immunologic History: Reports: None Other Immunologic History: hyper-eosiniphils Oncologic (Cancer) History: Reports: None Dermatologic History: Reports: Cellulitis - Infectious Disease History Infectious Disease History: Reports: Chicken Pox, Shingles - Past Surgical History Cardiovascular Surgical History: Reports: None Respiratory Surgical History: Reports: None GI Surgical History: Reports: None Male Surgical History: Reports: None Endocrine Surgical History: Reports: None Neurological Surgical History: Reports: Other (See Below) Other Neurological Surgeries/Procedures: spinal cord stilulation Musculoskeletal Surgical History: Reports: Other (See Below) Other Musculoskeletal Surgeries/Procedures:: left knee surgery, spinal cord stimulator Oncologic Surgical History: Reports: None Social & Family History - Family History Family Medical History: Noncontributory - Tobacco Use Smoking Status *Q: Never Smoker Second Hand Smoke Exposure: No - Caffeine Use Caffeine Use: Reports: None - Recreational Drug Use Recreational Drug Use: No ED ROS ALLERGIC REACTION - Review of Systems Review Of Systems: ROS reveals no pertinent complaints other than HPI. ED EXAM GENERAL NO PERIP PULSE - Physical Exam Exam: See Below (See dictation) Course - Vital Signs Last Recorded V/S: Last Vital Signs Temp 97.5 F 09/15/18 18:12 Pulse 86 09/15/18 18:12 Resp 20 09/15/18 18:12 BP 138/99 H 09/15/18 18:12 Pulse Ox 97 09/15/18 18:12 - Orders/Labs/Meds Meds: Medications Discontinued Medications Generic Name Dose Route Start Last Admin Trade Name Freq PRN Reason Stop Dose Admin Methylprednisolone Sodium Succinate 125 mg 09/15/18 18:25 Solu-Medrol IM 09/15/18 18:26 ONETIME ONE Departure - Departure Time of Disposition: 18:32 Disposition: Home, Self-Care 01 Clinical Impression: Hypereosinophilic syndrome, idiopathic - Discharge Information Referrals: PCP,None [Primary Care Provider] - Additional Instructions: The following information is given to patients seen in the emergency department who are being discharged to home. This information is to outline your options for follow-up care. We provide all patients seen in our emergency department with a follow-up referral. The need for follow-up, as well as the timing and circumstances, are variable depending upon the specifics of your emergency department visit. If you don't have a primary care physician on staff, we will provide you with a referral. We always advise you to contact your personal physician following an emergency department visit to inform them of the circumstance of the visit and for follow-up with them and/or the need for any referrals to a consulting specialist. The emergency department will also refer you to a specialist when appropriate. This referral assures that you have the opportunity for follow-up care with a specialist. All of these measure are taken in an effort to provide you with optimal care, which includes your follow-up. Under all circumstances we always encourage you to contact your private physician who remains a resource for coordinating your care. When calling for follow-up care, please make the office aware that this follow-up is from your recent emergency room visit. If for any reason you are refused follow-up, please contact the [facility] Emergency Department at and asked to speak to the emergency department charge nurse. [facility] [address] [place] [id number] [facility] [address] [place] [id number] 1. Please keep the blisters clean and dry. 2. Take the medications as prescribed. Please use [id number] Benadryl (H1 Ly) and/or Zantac (H-2 Ly) 3. Please follow-up with your primary team primary care physician and/or [facility] [employer] in the next week. Return to the ED as needed and as discussed.
== END 2018-09-15 18:55 | disposition home or self-care (01) ==
LOC: MW.ED 17:57
DX: D72.1 Eosinophilia (principal); J45.909 Unspecified asthma, uncomplicated; Z91.030 Bee allergy status; Z79.899 Other long term (current) drug therapy
CPT/HCPCS: 96372; 99282; J2930

== ENCOUNTER 2018-10-14 09:45 | Emergency (ER) | payer BC ==
--- NOTE | 2018-10-14 10:37 | EDM.PDOC ---
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 He denies other concern is been no fever chills trauma or other complaints Review of systems: As per history of present illness and below otherwise all systems reviewed and negative. Past medical history: As per history of present illness and as reviewed below otherwise noncontributory. Surgical history: As per history of present illness and as reviewed below otherwise noncontributory. Social history: No reported history of drug or alcohol abuse. Family history: As per history of present illness and as reviewed below otherwise noncontributory. Physical exam: HEENT: Atraumatic, normocephalic, pupils reactive, negative for conjunctival pallor or scleral icterus, mucous membranes moist, throat clear, neck supple, nontender, trachea midline. Lungs: Clear to auscultation, breath sounds equal bilaterally, chest nontender. Heart: S1S2, regular, negative for clicks, rubs, or JVD. Abdomen: Soft, nondistended, nontender. Negative for masses or hepatosplenomegaly. Negative for costovertebral tenderness. Pelvis: Stable nontender. Genitourinary: Deferred. Rectal: Deferred. Extremities: Patient has minimal edema of his left hand and does have one purpuric lesion on the dorsal aspect of his hand and smaller excoriated area of his left forearm. Neurovascular exam CMS unremarkable Neuro: Awake, alert, oriented. Cranial nerves II through XII unremarkable. Cerebellum unremarkable. Motor and sensory unremarkable throughout. Exam nonfocal. Diagnostics: None Therapeutics: None Impression: Hypereosinophilic syndrome Definitive disposition and diagnosis as appropriate pending reevaluation and review of above. - Related Data Allergies Allergy/AdvReac Type Severity Reaction Status Date / Time bee pollen Allergy Other Verified 10/14/18 09:50 Home Meds: Home Meds Cetirizine [ZyrTEC] 10 mg PO DAILY 03/09/18 [History] Phenytoin Sodium Extended [Dilantin] 400 mg PO BEDTIME 03/09/18 [History] Past Medical History HEENT History: Reports: Impaired Vision Cardiovascular History: Reports: None Respiratory History: Reports: Asthma, Bronchitis, Recurrent Gastrointestinal History: Reports: None Genitourinary History: Reports: None Musculoskeletal History: Reports: Other (See Below) Other Musculoskeletal History: chronic pain on 4 wxtremities Neurological History: Reports: Seizure Psychiatric History: Reports: None Endocrine/Metabolic History: Reports: None Hematologic History: Reports: None Other Hematologic History: Hyper-eosiniphils Immunologic History: Reports: None Other Immunologic History: hyper-eosiniphils Oncologic (Cancer) History: Reports: None Dermatologic History: Reports: Cellulitis - Infectious Disease History Infectious Disease History: Reports: Chicken Pox - Past Surgical History HEENT Surgical History: Reports: None Cardiovascular Surgical History: Reports: None Respiratory Surgical History: Reports: None GI Surgical History: Reports: None Male Surgical History: Reports: None Endocrine Surgical History: Reports: None Neurological Surgical History: Reports: Other (See Below) Other Neurological Surgeries/Procedures: spinal cord stilulation Musculoskeletal Surgical History: Reports: Other (See Below) Other Musculoskeletal Surgeries/Procedures:: left knee surgery, spinal cord stimulator Oncologic Surgical History: Reports: None Dermatological Surgical History: Reports: None Social & Family History - Family History Family Medical History: Noncontributory - Tobacco Use Smoking Status *Q: Current Every Day Smoker Years of Tobacco use: 20 Packs/Tins Daily: 1 - Caffeine Use Caffeine Use: Reports: Coffee - Recreational Drug Use Recreational Drug Use: No ED ROS ALLERGIC REACTION - Review of Systems Review Of Systems: ROS reveals no pertinent complaints other than HPI. ED EXAM GENERAL NO PERIP PULSE - Physical Exam Exam: See Below (See dictation) Course - Vital Signs Last Recorded V/S: Last Vital Signs Temp 36.6 C 10/14/18 09:51 Pulse 103 H 10/14/18 09:51 Resp 18 10/14/18 09:51 BP 146/101 H 10/14/18 09:51 Pulse Ox 96 10/14/18 09:51 Departure - Departure Time of Disposition: 10:36 Disposition: Home, Self-Care 01 Condition: Good Clinical Impression: Hypereosinophilic syndrome, idiopathic - Discharge Information Referrals: PCP,None [Primary Care Provider] - Additional Instructions: The following information is given to patients seen in the emergency department who are being discharged to home. This information is to outline your options for follow-up care. We provide all patients seen in our emergency department with a follow-up referral. The need for follow-up, as well as the timing and circumstances, are variable depending upon the specifics of your emergency department visit. If you don't have a primary care physician on staff, we will provide you with a referral. We always advise you to contact your personal physician following an emergency department visit to inform them of the circumstance of the visit and for follow-up with them and/or the need for any referrals to a consulting specialist. The emergency department will also refer you to a specialist when appropriate. This referral assures that you have the opportunity for followup care with a specialist. All of these measure are taken in an effort to provide you with optimal care, which includes your followup. Under all circumstances we always encourage you to contact your private physician who remains a resource for coordinating your care. When calling for followup care, please make the office aware that this follow-up is from your recent emergency room visit. If for any reason you are refused follow-up, please contact the [facility] emergency department at and asked to speak to the emergency department charge nurse. Medrol Dosepak as prescribed Benadryl as directed follow-up dermatology as discussed call on Tuesday return as needed as discussed
== END 2018-10-14 10:48 | disposition home or self-care (01) ==
LOC: MW.ED 09:45
DX: D72.1 Eosinophilia (principal); F17.210 Nicotine dependence, cigarettes, uncomplicated; Z91.030 Bee allergy status; Z79.899 Other long term (current) drug therapy
CPT/HCPCS: 99282